=== PATIENT | female | born 1950 | race Caucasian/White ===

== ENCOUNTER → 2020-07-06 | Emergency (ER) | payer MEDICARE | LOC: BURERS 13:14 | DX: M62.838 Other muscle spasm (principal); I10 Essential (primary) hypertension; F32.9 Major depressive disorder, single episode, unspecified; V89.2XXA Person injured in unspecified motor-vehicle accident, traffic, initial encounter | CPT/HCPCS: 99281 ==

== ENCOUNTER 2020-09-01 15:46 | Emergency (ER) | payer MEDICARE ==
--- NOTE | 2020-09-01 16:15 | CT ---
Exam: Head CT without contrast HISTORY: Patient tripped over concrete. Fall. Laceration. Hematoma. COMPARISON: none FINDINGS: Hemorrhage: No intraparenchymal hemorrhage or extra-axial hematoma. Brain parenchyma: Cortical shin-white matter differentiation is preserved. No mass effect or midline shift. Basilar cisterns are patent. Ventricular system: Ventricles and sulci are patent and symmetric. Calvarium: Intact Scalp: Right frontal scalp hematoma and laceration. No radiopaque body. Sinuses and mastoid air cells: Adequate aeration. IMPRESSION: 1. Posttraumatic changes in the right frontal scalp. 2. No intracranial post traumatic sequelae.
[2020-09-01] MEDS ORDERED: Lidocaine 1% w/Epinephrine 1:100K 20 ML VIAL ONE (16:23)
--- NOTE | 2020-09-01 16:23 | CT ---
Exam: CT cervical spine without contrast HISTORY: Trauma. Fall. Pain. COMPARISON: None FINDINGS: No craniocervical dissociation. Appropriate alignment of the lateral masses of C1 and C2. Intact odon toid process Appropriate alignment of the facets. Straightening of normal cervical lordosis may be due to patient position, muscle spasm or cervical co llar. Current study does not assess for ligamentous injury. Soft tissue neck structures: No mass, lymphadenopathy or hematoma. No prevertebral soft tissue swelli ng. Upper mediastinum and lung apices: Unremarkable Central spinal canal: Neural foramina and central spinal canal are patent. Evaluation is limited by t echnique Vertebral bodies: Cervical spine vertebral body height is maintained. No fracture. IMPRESSION: 1. No cervical spine fracture 2. Straightening of cervical lordosis as detailed above. MRI if there is concern for ligamentous inju ry.
[2020-09-01] MEDS ORDERED: Bacitracin 1 PK ONE (16:51)
== END 2020-09-01 17:00 | disposition home or self-care (01) ==
LOC: BURERS 15:46
DX: S01.81XA Laceration without foreign body of other part of head, initial encounter (principal); I10 Essential (primary) hypertension; F32.9 Major depressive disorder, single episode, unspecified; Z79.899 Other long term (current) drug therapy; Z79.82 Long term (current) use of aspirin; W01.190A Fall on same level from slipping, tripping and stumbling with subsequent striking against furniture, initial encounter; Y92.009 Unspecified place in unspecified non-institutional (private) residence as the place of occurrence of the external cause
CPT/HCPCS: 12011; 70450; 72125

== ENCOUNTER 2023-05-17 15:13 | Outpatient (CLI) | payer MEDICARE | END 2023-05-17 15:14 | disposition home or self-care (01) | LOC: BURRAD 15:13 | PROVIDERS: ATTEND Family Medicine | DX: R06.09 Other forms of dyspnea (principal) | CPT/HCPCS: 71046 ==

== ENCOUNTER 2025-10-01 14:36 | Outpatient (CLI) | payer MEDICARE | END 2025-10-01 14:37 | disposition home or self-care (01) | LOC: BURRAD 14:36 | PROVIDERS: ATTEND Family Medicine | DX: J20.9 Acute bronchitis, unspecified (principal); R06.2 Wheezing; R63.4 Abnormal weight loss | CPT/HCPCS: 71046 ==